=== PATIENT | male | born 1955 | race Caucasian/White ===

== ENCOUNTER 2019-09-17 16:59 | Emergency (ER) | payer OTHER ==
[~2019-09-17] VITALS: Ht 170.2 cm; Wt 85.0 kg
[~2019-09-17 16:59] MED LIST: BENA20TA54 PO; CIPR500T87 PO; DUTA0.5C PO; OXYC-302 PO; SIMV10TA18 PO; TAMS0.4C2 PO
[2019-09-17] MEDS ORDERED: ACYC-113 PO (17:22)
[2019-09-17] MEDS ORDERED: VALS1TAB25 PO (17:22)
[2019-09-17] MEDS ORDERED: FINA5TAB4 PO (17:22)
[2019-09-17] MEDS ORDERED: EMTR1TAB14 PO (17:22)
--- NOTE | 2019-09-17 17:35 | NUR ---
PIV PLACED, LABS DRAWN. PT CONNECTED TO MONITORING. CALL LIGHT IN REACH.
[2019-09-17 18:25] LABS: BASOPHILS # (AUTO) 0.03 x10^3/uL (0-0.1); BASOPHILS % (AUTO) 0 % (0-1); EOSINOPHILS # (AUTO) 0.05 x10^3/uL (0-0.4); EOSINOPHILS % (AUTO) 1 % (1-7); LYMPHOCYTES # (AUTO) 1.98 x10^3/uL (1-3.4); LYMPHOCYTES % (AUTO) 35 % (22-44); MD NO; MEAN CORPUSCULAR HEMOGLOBIN 32.4 pg (27.5-34.5); MEAN CORPUSCULAR HGB CONC 34.1 g/dL (33.2-36.2); MONOCYTES # (AUTO) 0.64 x10^3/uL (0.2-0.8); MONOCYTES % (AUTO) 11 % (2-9); NEUTROPHILS # (AUTO) 2.98 x10^3/uL (1.8-6.8); NEUTROPHILS % (AUTO) 53 % (42-75); PLATELET COUNT 200 x10^3/uL (130-400); RED BLOOD COUNT 4.59 x10^6/uL (4.38-5.82); RED CELL DISTRIBUTION WIDTH 13.1 % (9.4-14.8)
--- NOTE | 2019-09-17 18:27 | NUR ---
ASSUMED CARE AT THIS TIME, JACKELIN ANNE.
[2019-09-17 18:31] LABS: ALANINE AMINOTRANSFERASE 29 U/L (12-78); ALBUMIN 3.9 g/dL (3.4-5.0); ANION GAP 5 mmol/L (5-15); CALCIUM 8.5 mg/dL (8.5-10.1); CHLORIDE 108 mmol/L (98-107); CREATININE 1.08 mg/dL (0.7-1.3)
[2019-09-17 18:34] LABS: ALKALINE PHOSPHATASE 53 U/L (45-117); BILIRUBIN,TOTAL 1.1 mg/dL (0.2-1.0); TOTAL PROTEIN 7.4 g/dL (6.4-8.2); TROPONIN I < 0.015 ng/mL (0.000-0.045)
[2019-09-17 18:46] VITALS: BP 131/76
--- NOTE | 2019-09-17 18:47 | NUR ---
PT CALM IN BED HAS NO REQUESTS, NAD.
== END 2019-09-17 19:20 | disposition home or self-care (01) ==
LOC: ED 17:30
DX: R07.89 Other chest pain (principal); J00 Acute nasopharyngitis [common cold]; R94.31 Abnormal electrocardiogram [ECG] [EKG]; I10 Essential (primary) hypertension; E78.00 Pure hypercholesterolemia, unspecified
CPT/HCPCS: 36415; 80053; 84484; 85025; 93005; 99284

== ENCOUNTER 2020-10-23 10:47 | Outpatient (CLI) | payer OTHER ==
[~2020-10-23 10:47] MED LIST changes: +ACYC200C13 PO; +EMTR1TAB14 PO; +FINA5TAB4 PO; -OXYC-302 PO; +OXYC1TAB14 PO; +VALS1TAB25 PO
[2020-10-23] MEDS ORDERED: MULT-658 PO (11:14)
[2020-10-23] MEDS ORDERED: GLUC-104 PO (11:14)
[2020-10-23] MEDS ORDERED: CETI-158 PO (11:14)
[2020-10-23] MEDS ORDERED: TAMS-11 PO (11:14)
[2020-10-23] MEDS ORDERED: EMTR1TAB14 PO (11:14)
[2020-10-23] MEDS ORDERED: BIOT25005 PO (11:14)
[2020-10-23] MEDS ORDERED: VALA500T4 PO (11:14)
[2020-10-23] MEDS ORDERED: EZET10TA70 PO (11:14)
[2020-10-23 12:05] LABS: MICROSCOPIC AUTO
[2020-10-23 12:09] LABS: BASOPHILS % (AUTO) 0 % (0-1); EOSINOPHILS % (AUTO) 1 % (1-7); LYMPHOCYTES % (AUTO) 39 % (22-44); MEAN CORPUSCULAR HEMOGLOBIN 32.9 pg (27.5-34.5); MEAN CORPUSCULAR HGB CONC 34.9 g/dL (33.2-36.2); MEAN PLATELET VOLUME 7.5 fL (7.4-10.4); MONOCYTES % (AUTO) 10 % (2-9); NEUTROPHILS % (AUTO) 50 % (42-75); PLATELET COUNT 219 x10^3/uL (130-400); RED BLOOD COUNT 5.12 x10^6/uL (4.38-5.82); RED CELL DISTRIBUTION WIDTH 13.9 % (9.4-14.8)
[2020-10-23 12:16] LABS: ALBUMIN 4.3 g/dL (3.4-5.0); ANION GAP 4 mmol/L (5-15); CALCIUM 9.4 mg/dL (8.5-10.1); CHLORIDE 104 mmol/L (98-107)
[2020-10-23 12:20] LABS: INTERNATIONAL NORMALIZED RATIO 0.97 (0.93-1.1); PROTHROMBIN TIME 10.4 Seconds (9.6-11.5)
[2020-10-23 12:21] LABS: ALANINE AMINOTRANSFERASE 40 U/L (12-78); ALKALINE PHOSPHATASE 62 U/L (45-117); BILIRUBIN,TOTAL 0.6 mg/dL (0.2-1.0); CREATININE 0.88 mg/dL (0.7-1.3); TOTAL PROTEIN 8.2 g/dL (6.4-8.2)
== END 2020-10-23 23:59 | disposition home or self-care (01) ==
LOC: STAR 10:47
PROVIDERS: ATTEND Student in an Organized Health Care Education/Training Program
DX: Z01.818 Encounter for other preprocedural examination (principal); R33.9 Retention of urine, unspecified; I44.0 Atrioventricular block, first degree
CPT/HCPCS: 36415; 80053; 81001; 85025; 85610; 87077; 87086; 87186; 93005

== ENCOUNTER 2020-11-02 06:32 | Inpatient (IN) | payer OTHER ==
[~2020-11-02] VITALS: Ht 172.7 cm; Wt 90.5 kg
[~2020-11-02 06:32] MED LIST changes: +BIOT25005 PO; +CETI-158 PO; +EZET10TA70 PO; +GLUC-104 PO; +MULT-658 PO; +OXYC1TAB12 PO; -OXYC1TAB14 PO; +TAMS-11 PO; +VALA500T4 PO
[2020-11-02] MEDS ORDERED: SULF1TAB23 PO (07:17)
[2020-11-02] MEDS ORDERED: CHLORHEXIDINE 15 ML UDC ONE (07:21)
[2020-11-02] MEDS ORDERED: LACTATED RINGERS 1,000 ML IV SCH (07:30)
[2020-11-02] MEDS ORDERED: CHLORHEXIDINE 15 ML UDC PO ONE (07:30)
[2020-11-02] MEDS ORDERED: OPIUM/BELLADONNA SUPP.RECT 16.2-30 MG ONE (08:10)
[2020-11-02] MEDS ORDERED: FENTANYL PF 100 MCG/2ML ONE ×2 (08:18→08:56)
[2020-11-02] MEDS ORDERED: MEPERIDINE/PF 25MG/0.5ML IVPush PRN (09:30)
[2020-11-02] MEDS ORDERED: LABETALOL 5MG/ML, 20ML IV PRN (09:30)
[2020-11-02] MEDS ORDERED: ACETAMINOPHEN 325 MG TABLET PO PRN (09:30)
[2020-11-02] MEDS ORDERED: METOPROLOL 1 MG/ML, 5ML IV PRN (09:30)
[2020-11-02] MEDS ORDERED: FENTANYL PF 100 MCG/2ML IV PRN (09:30)
[2020-11-02] MEDS ORDERED: ONDANSETRON 2MG/ML, 2ML IVPush PRN (09:30)
[2020-11-02] MEDS ORDERED: OXYcodone 5 MG/5 ML ORAL.SOL UDC PO PRN ×2 (09:30→14:30)
[2020-11-02] MEDS ORDERED: PROMETHAZINE 25 MG/ML, 1ML IVPush PRN (09:30)
[2020-11-02] MEDS ORDERED: hydrALAzine 20 MG/ML, 1ML IV PRN (09:30)
[2020-11-02] MEDS ORDERED: HYDROmorphone 1 MG/ML, 1ML INJ IVPush PRN (09:30)
[2020-11-02] MEDS ORDERED: PROMETHAZINE 25 MG SUPP PR PRN (09:30)
[2020-11-02] MEDS ORDERED: LORazepam 2 MG/ML, 1ML IVPush PRN (09:30)
[2020-11-02] MEDS ORDERED: ONDANSETRON 2MG/ML, 2ML ONE (09:49)
[2020-11-02] MEDS ORDERED: DEXAMETHASONE 4 MG/ML, 1ML ONE (09:49)
[2020-11-02] MEDS ORDERED: CEFAZOLIN 1,000 MG ONE (09:49)
[2020-11-02] MEDS ORDERED: PROPOFOL 10 MG/ML, 20ML ONE (09:49)
[2020-11-02] MEDS ORDERED: OXYcodone 5 MG/5 ML ORAL.SOL UDC ONE (10:02)
[2020-11-02] MEDS ORDERED: ACETAMINOPHEN 650 MG/20.3 ML UDC ONE (10:02)
[2020-11-02] MEDS ORDERED: METHOCARBAMOL 1,000 MG in DEXTROSE 5% 100 ML IV PRN (10:30)
[2020-11-02 10:45] VITALS: BP 143/78
[2020-11-02 12:15] VITALS: BP 130/74
[2020-11-02] MEDS ORDERED: OPIUM/BELLADONNA SUPP.RECT 16.2-30 MG PR PRN (14:30)
[2020-11-02] MEDS ORDERED: HYDROmorphone 1 MG/ML, 1ML INJ IV PRN (14:30)
[2020-11-02] MEDS: ACETAMINOPHEN 325 MG TABLET PO SCH ×2 (17:56→23:14)
[2020-11-02 20:28] VITALS: BP 137/85
[2020-11-02] MEDS: DOCUSATE 100 MG CAPSULE PO SCH (21:57)
[2020-11-03 00:02] VITALS: BP 138/79
[2020-11-03 04:08] VITALS: BP 127/74
[2020-11-03] MEDS: ACETAMINOPHEN 325 MG TABLET PO SCH ×2 (04:52→11:39)
[2020-11-03 07:20] VITALS: BP 134/71
[2020-11-03] MEDS: DOCUSATE 100 MG CAPSULE PO SCH (08:49)
[2020-11-03] MEDS ORDERED: POLYETHYLENE GLYCOL 17 GM PACKET PO SCH (09:00)
[2020-11-03] MEDS ORDERED: VALACYCLOVIR 500MG TABLET PO SCH (09:00)
[2020-11-03] MEDS ORDERED: TAMSULOSIN 0.4 MG CAP.ER.24H PO SCH (09:00)
[2020-11-03] MEDS ORDERED: EZETIMIBE 10 MG TABLET PO SCH (09:00)
[2020-11-03] MEDS ORDERED: HYDROCHLOROTHIAZIDE 12.5 MG CAPSULE PO SCH (09:00)
[2020-11-03] MEDS ORDERED: VALSARTAN 160 MG TABLET PO SCH (09:00)
[2020-11-03 12:42] VITALS: BP 118/66
== END 2020-11-03 12:55 | disposition home or self-care (01) | DRG 714 ==
LOC: OUT 06:32 → 4NE 10:42 → OUT 13:48
PROVIDERS: ADMIT Student in an Organized Health Care Education/Training Program; ATTEND Student in an Organized Health Care Education/Training Program
PROC: 0VT08ZZ Resection of Prostate, Via Natural or Artificial Opening Endoscopic (ICD-10-PCS; principal; 2020-11-02 08:30)
DX: N40.1 Benign prostatic hyperplasia with lower urinary tract symptoms (principal); R33.8 Other retention of urine
CPT/HCPCS: 88305; G0378; J0690; J1100; J2405; J2704; J3010; J7120